=== PATIENT | female | born 1960 | race African-American/Black ===

== ENCOUNTER 2025-08-26 20:20 | Emergency (ER) | payer MEDICARE, OTHER ==
[2025-08-26] MEDS ORDERED: Sodium Chloride 0.9% 10 ML Syringe FLUSH PRN (20:43)
[2025-08-26] MEDS: Ondansetron 4 MG/2 ML SDV ONE (20:45)
[2025-08-26] MEDS: Ondansetron 4 MG/2 ML SDV IVPUSH ONE (20:45)
[2025-08-26 20:52] LABS: BASOPHILS ABSOLUTE AUTO 0.01 10^3/uL (0.00-0.10); BASOPHILS PERCENT AUTO 0.1 % (0.0-1.0); EOSINOPHILS ABSOLUTE AUTO 0.04 10^3/uL (0.10-0.30); EOSINOPHILS PERCENT AUTO 0.5 % (1.0-3.0); IMMATURE GRAN ABSOLUTE AUTO 0.01 10^3/uL (0.00-0.04); IMMATURE GRAN PERCENT AUTO 0.1 % (0.0-0.4); LYMPHOCYTES ABSOLUTE AUTO 1.97 10^3/uL (1.00-4.00); LYMPHOCYTES PERCENT AUTO 26.2 % (20.0-40.0); MEAN PLATELET VOLUME 10.1 fL (7.4-10.4); MONOCYTES ABSOLUTE AUTO 0.53 10^3/uL (0.10-0.80); MONOCYTES PERCENT AUTO 7.0 % (2.0-8.0); NEUTROPHILS ABSOLUTE AUTO 4.97 10^3/uL (2.50-7.00); NEUTROPHILS PERCENT AUTO 66.1 % (50.0-70.0); PLATELET COUNT,PLT 257 10^3/uL (150-400); RED BLOOD CELL COUNT 4.49 10^6/uL (3.80-5.50); RED CELL DISTRIBUTION WIDTH 13.6 % (11.5-14.5); WHITE BLOOD CELL COUNT,WBC 7.53 10^3/uL (5.00-10.00)
[2025-08-26 21:09] LABS: ALANINE AMINOTRANSFERASE,ALT 21.0 U/L (14-63); ASPARTATE AMNIOTRANSFERASE,AST 23.0 U/L (15-37); BILIRUBIN TOTAL 0.6 mg/dL (0.2-1.0); BLOOD UREA NITROGEN,BUN 10.0 mg/dL (7-18); CARBON DIOXIDE,CO2 29.2 mmol/L (21.0-32.0); CHLORIDE,CL 105.0 mmol/L (98-107); CREATININE 0.78 mg/dL (0.51-1.17); EST CRCL DRUG DOSING (CG) 53.71 mL/min; ESTIMATED GFR 86.0 mL/min (>=60); GLUCOSE RANDOM 96.0 mg/dL (70-140); POTASSIUM,K 3.6 mmol/L (3.5-5.1); PROTEIN TOTAL,TP 7.0 g/dL (6.4-8.2); SODIUM,NA 142.0 mmol/L (136-145)
[2025-08-26 21:25] LABS: APPEARANCE,URINE CLEAR (CLEAR); GLUCOSE,URINE NEGATIVE (NEGATIVE)
[2025-08-26 21:33] LABS: OCCULT BLOOD,URINE SMALL (NEGATIVE)
[2025-08-26 21:34] LABS: EPITHELIAL CELLS,URINE RARE /LPF; YEAST,URINE FEW /HPF (NEGATIVE)
[2025-08-26] MEDS: Ondansetron 4 MG Tab.DIS PO ONE (21:40)
== END 2025-08-26 21:51 | disposition home or self-care (01) ==
LOC: KA.ED 20:20
DX: K59.01 Slow transit constipation (principal); R11.2 Nausea with vomiting, unspecified; Z88.5 Allergy status to narcotic agent; Z98.84 Bariatric surgery status; Z90.49 Acquired absence of other specified parts of digestive tract
CPT/HCPCS: 74018; 80053; 81001; 83690; 84484; 85025; 93010; 96361; 96374; 96375; 99284; 99284-25; A9270-GY; J2270; J2405; J7030